=== PATIENT | female | born 1945 | race American Indian/Alaskan Native ===

== ENCOUNTER 2020-05-22 05:43 | Emergency (ER) | payer MEDICARE ==
--- NOTE | 2020-05-22 06:30 | Emergency Department Report ---
ED General Adult HPI - General Chief complaint: Fall Stated complaint: RT SIDE PAIN/FALL/ULCER LEFT BREAST Time Seen by Provider: 05/22/20 06:15 Source: patient, EMS Mode of arrival: Stretcher Limitations: Other - History of Present Illness Initial comments: Patient is 74 years old female with no significant past medical history however patient stated that the last time she saw was 10 years ago. Patient brought to the emergency room via EMS from home for evaluation after a fall. Patient stated that she was going to the bathroom when she missed what she was holding on and fell on the ground. Patient denied any head injury and no loss of cons ciousness. Patient is complaining of right hip pain. Patient denied any chest pain, shortness of breath, nausea or vomiting. Upon my exam I found patient to have a fungating mass to the left breast with significant ulceration. Patient stated that she has been hiding it from her family but she told them today about it when she decided to come to the hospital. Patient stated that she has been having abdominal swelling mainly to the right upper quadrant with significant decreased appetite and loss of weight. Patient denied any fever or chills. Severity scale (0 -10): 0 - Related Data Allergies Allergy/AdvReac Type Severity Reaction Status Date / Time No Known Allergies Allergy Unverified 05/22/20 05:52 ED Review of Systems ROS: Stated complaint: RT SIDE PAIN/FALL/ULCER LEFT BREAST Other details as noted in HPI Comment: All other systems reviewed and negative Constitutional: denies: chills, fever Respiratory: denies: cough, shortness of breath, SOB with exertion Cardiovascular: denies: chest pain Gastrointestinal: abdominal pain. denies: nausea, vomiting, diarrhea, constipation, hematemesis, melena, hematochezia Musculoskeletal: denies: back pain Neurological: weakness (Generalized) ED Physical Exam - General Limitations: Other General appearance: alert, in no apparent distress, cachectic - Head Head exam: Present: atraumatic, normocephalic, normal inspection - ENT ENT exam: Present: mucous membranes dry - Neck Neck exam: Present: normal inspection, full ROM. Absent: tenderness, meningismus, lymphadenopathy, thyromegaly - Respiratory Respiratory exam: Present: normal lung sounds bilaterally - Cardiovascular Cardiovascular Exam: Present: regular rate, normal rhythm, normal heart sounds - GI/Abdominal GI/Abdominal exam: Present: soft, distended, normal bowel sounds. Absent: tenderness, guarding, rebound, rigid, organomegaly, mass, bruit, pulsatile mass, hernia - Extremities Exam Extremities exam: Present: normal inspection, full ROM, normal capillary refill - Back Exam Back exam: Present: normal inspection, full ROM. Absent: CVA tenderness (R), CVA tenderness (L) - Neurological Exam Neurological exam: Present: alert, oriented X3, CN II-XII intact - Psychiatric Psychiatric exam: Present: normal mood - Skin Skin exam: Present: warm, intact, normal color ED Course Vital Signs 05/22/20 05/22/20 06:11 09:46 Temperature 97 F L 97.2 F L Pulse Rate 95 H 76 Respiratory 12 16 Rate Blood Pressure 164/94 134/75 [Left] O2 Sat by Pulse 99 99 Oximetry ED Medical Decision Making - Lab Data Result diagrams: 05/22/20 06:34 05/22/20 06:34 - Radiology Data Radiology results: report reviewed - Medical Decision Making Patient is 74 years old female with no significant past medical history however patient stated that the last time she saw was 10 years ago. Patient brought to the emergency room via EMS from home for evaluation after a fall. Patient stated that she was going to the bathroom when she missed what she was holding on and fell on the ground. Patient denied any head injury and no loss of consciousness. Patient is complaining of right hip pain. Patient denied any chest pain, shortness of breath, nausea or vomiting. Upon my exam I found patient to have a fungating mass to the left breast with significant ulceration. Patient stated that she has been hiding it from her family but she told them today about it when she decided to come to the hospital. Patient stated that she has been having abdominal swelling mainly to the right upper quadrant with significant decreased appetite and loss of weight. Patient denied any fever or chills. Patient labs reviewed and showed significantly elevated liver enzymes and bilirubin. CT abdomen and pelvis showed a 6 cm enhancing mass in the left breast, multiple hypodense lesions in the liver concerning for liver metastasis. I discussed the patient with Dr. Pinedo, breast surgeon, she stated that she would be happy to see the patient on afternoon at her office. Hip x-ray is negative for acute finding. Patient is stable for discharge as all of the symptoms are chronic and suitable for outpatient work-up. I discussed the patient with Dr. Pinedo office staff and to schedule the appointment for at 1:45 PM on 05/24/2020. Critical care attestation.: If time is entered above; I have spent that time in minutes in the direct care of this critically ill patient, excluding procedure time. ED Disposition Clinical Impression: Fall, Abdominal pain, Breast mass, left Disposition: DC- TO HOME OR SELFCARE Is pt being admited?: No Condition: Stable Instructions: Abdominal Pain (ED), Breast Mass (ED), Fall Prevention (ED) Referrals: TAYE CAROLINA MD [Primary Care Provider] - 3-5 Days EMILY PINEDO MD [Staff Physician] - 3-5 Days
--- NOTE | 2020-05-22 06:49 | XRay Report ---
RIGHT HIP AND PELVIS 3 VIEWS INDICATION: Fall/ pain to right hip. COMPARISON: No relevant prior imaging study available. FINDINGS: There is diffuse, subjective osteopenia. Mild degenerative changes are noted. Accounting for limitati ons, no acute, displaced fracture or dislocation is seen. Central pelvic calcifications are likely ca lcified uterine fibroids. IMPRESSION: 1. No acute, displaced fracture is seen. Signer Name: Tyrone Tariq MD Signed: 05/22/2020 6:45 AM Workstation Name: [email or web address]
--- NOTE | 2020-05-22 06:49 | XRay Report ---
CHEST 1 VIEW INDICATION: MAIN. COMPARISON: None. FINDINGS: Support devices: None. Heart: Normal. Lungs/Pleura: No acute pulmonary or pleural findings. IMPRESSION: 1. No acute findings. Signer Name: Tyrone Tariq MD Signed: 05/22/2020 6:45 AM Workstation Name: [id number]
[2020-05-22 07:53] LABS: Hematocrit 34.6 % (30.3-42.9); Hemoglobin 11.7 gm/dl (10.1-14.3); Mean Corpuscular HGB Conc 34 % (30-34); Mean Corpuscular Volume 94 fl (79-97); Platelet Count 371 K/mm3 (140-440); Red Cell Distribution Width 18.6 % (13.2-15.2)
[2020-05-22 07:55] LABS: INR 1.01 (0.87-1.13)
[2020-05-22 07:56] LABS: Partial Thromboplastin Time 37.9 Sec. (24.2-36.6)
[2020-05-22 09:29] LABS: BUN/Creatinine Ratio 31; Blood Urea Nitrogen 28 mg/dL (7-17); Calcium 10.6 mg/dL (8.4-10.2)
[2020-05-22 09:30] LABS: Alanine Aminotransferase 197 units/L (7-56); Albumin 2.9 g/dL (3.9-5); Bilirubin,Direct 5.4 mg/dL (0-0.2); Hemolysis Index 0
[2020-05-22 09:50] LABS: Bilirubin,Urine NEG (Negative); Blood,Urine NEG (Negative); Color,Urine Amber (Yellow); Protein,Urine <15 mg/dL mg/dL (Negative)
[2020-05-22 10:00] VITALS: BP 134/75
--- NOTE | 2020-05-22 10:42 | Cat Scan Report ---
CT ABDOMEN AND PELVIS WITH CONTRAST HISTORY: abdominal pain, RLQ pain, swelling OMNIPAQUE 300 100ML COMPARISON: None. TECHNIQUE: Axial CT images were obtained through the abdomen and pelvis after 100 cc of Omnipaque 300 intravenously. Sagittal and coronal reformatted images. All CT scans at this location are performed using CT dose reduction for ALARA by means of automated exposure control. FINDINGS: CT ABDOMEN: Lung Bases: The lung bases are adequately aerated. There are a few tiny, millimetric nodules in the m iddle lobe and lingula which are too small to characterize. There appears to be an approximate 5 to 6 cm enhancing mass in the left lower breast with large areas of skin thickening inferior to the left breast. Liver: The liver is markedly enlarged and heterogeneous. Numerous hypodense masses are identified con cerning for a metastatic process. Biliary: The gallbladder has been surgically removed or is contracted. No biliary dilatation. Spleen: No significant abnormality. Unenlarged. Pancreas: No significant abnormality. Adrenals: No significant abnormality. Kidneys: No significant abnormality. Lymphatics: No lymphadenopathy. Vasculature: No significant abnormality. Bowel/Peritoneum: No evidence for obstruction or focal inflammation. No obvious GI mass although no o ral contrast was administered. There is moderate ascites in the lower abdomen. No free air. CT PELVIS: : The uterus is mildly enlarged and lobular with multiple partially calcified fibroids. The bladder and adnexa are unremarkable. Osseous Structures: Osteopenia. No suspicious bony lesion or fracture. Additional Findings: None IMPRESSION: Large left breast mass is suspected as described. The liver is markedly enlarged with numerous hypode nse masses. This is concerning for metastatic breast cancer. Few tiny nodules at the lung bases which are too small to characterize. Ascites. Uterine fibroid disease. Osteopenia. No acute inflammatory process is identified. Signer Name: Shai Fernández Jr, MD Signed: 05/22/2020 10:37 AM Workstation Name: [id number]
[2020-05-22] MEDS ORDERED: SODIUM CHLORIDE 0.9% 1000 ML 1,000 ML IV ONE (11:03)
[2020-05-22 14:29] LABS: Total Cells Counted 100
[2020-05-22 14:30] LABS: Anisocytosis 1+; Band Neutrophils # (Manual) 0.1 K/mm3; Basophils % (Manual) 0 % (0.0-1.8); Eosinophils % (Manual) 0 % (0.0-4.3); Macrocytosis Few; Platelet Estimate Consistent w Auto; Target Cells Few
== END 2020-05-22 15:00 | disposition home or self-care (01) ==
LOC: ED 05:43
DX: R10.9 Unspecified abdominal pain (principal); N63.0 Unspecified lump in unspecified breast; W18.30XA Fall on same level, unspecified, initial encounter; Y93.89 Activity, other specified; Y92.89 Other specified places as the place of occurrence of the external cause; Y99.8 Other external cause status
CPT/HCPCS: 36415; 71045; 73501; 74177; 80048; 80076; 81001; 83690; 85007; 85025; 85610; 85730; 99284; J7030; Q9967